=== PATIENT | female | born 1990 | race Caucasian/White ===

== ENCOUNTER 2019-04-10 10:23 | Emergency (ER) | payer BC ==
[2019-04-10] MEDS ORDERED: NS 0.9% 1000 ML** 2,000 ML IV ONE (10:44)
[2019-04-10] MEDS ORDERED: Acetaminophen TAB* 325 MG PO ONE (10:45)
[2019-04-10] MEDS ORDERED: DOXYcycline CAP(*) 100 MG PO ONE (10:45)
--- NOTE | 2019-04-10 10:51 | ED ---
Skin Complaint - HPI Summary HPI Summary: This pt is a 28 y/o female presenting to [facility] c/o tick bite to left lower abdomen since 2 days ago. Pt reports she woke up 2 days ago with a rash on her left lower abdomen. She then notes she had a fever of 102F later that night. She went to [facility] yesterday and was told it was a tick bite and was given Doxycycline and was also told to get blood work done. Pt never saw a tick. 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 Pt took the first dose of Doxycycline last night and throughout the night she notes she felt tingling and numbness on her right lower lip. She describes a Novacaine sensation on her lip. Pt took Benadryl and placed a hot compress without much relief. Currently reports persistent numbness on lip. Additionallly notes nausea, decreased appetite, intermittent fevers. Denies cough, abd pain, vomiting, neck pain, chest pain, SOB. Pt did not take Doxycycline today. LMP: March 22, 2019. - History of Current Complaint Chief Complaint: EDFever Time Seen by Provider: 04/10/19 10:34 Stated Complaint: FACIAL NUMBNESS PER PT Hx Obtained From: Patient Onset/Duration: Started Days Ago - 2, Still Present Skin Exposure Onset/Duration: Days Ago - 2 Timing: Lasting Days - 2 Current Severity: None Pain Intensity: 0 Pain Scale Used: 0-10 Numeric Skin Location: Abdomen - left lower Character: Swelling, Redness Aggravating Symptom(s): Nothing Alleviating Symptom(s): Nothing Associated Signs & Symptoms: Nausea, Numbness - on lip, Fever Related History: Insect Bite/Sting - Tick bite - Allergy/Home Medications Allergies/Adverse Reactions: Allergies Allergy/AdvReac Type Severity Reaction Status Date / Time No Known Allergies Allergy Verified 04/10/19 10:46 Home Medications: Home Medications Cetirizine* [ZyrTEC 10 MG TAB*] 10 mg PO DAILY 04/10/19 [History Confirmed 04/10] Cyanocobalamin TAB* [Vitamin B12 TAB*] 500 mcg PO DAILY 04/10/19 [History Confirmed 04/10/19] Venlafaxine EXT RELEASE CAP(NF [Effexor Xr CAP 225 MG (NF)] 225 mg PO DAILY [History Confirmed 04/10/19] PMH/Surg Hx/FS Hx/Imm Hx Endocrine/Hematology History: Denies: Hx Diabetes Cardiovascular History: Denies: Hx Hypertension - Family History Known Family History: Positive: Hypertension - mother Negative: Cardiac Disease, Diabetes - Social History Alcohol Use: Occasionally Substance Use Type: Reports: Marijuana Smoking Status (MU): Never Smoked Tobacco Review of Systems Constitutional: Other - POSITIVE: decreased appetite Positive: Fever. Negative: Chills Negative: Chest Pain Negative: Shortness Of Breath, Cough Positive: Nausea. Negative: Abdominal Pain, Vomiting Skin: Other - POS: Positive: Paresthesia - on lip, Numbness - on lip All Other Systems Reviewed And Are Negative: Yes Physical Exam - Summary Physical Exam Summary: VITAL SIGNS: Reviewed. GENERAL: Patient is a well-developed and nourished female who is lying comfortable in the stretcher. Patient is not in any acute respiratory distress. HEAD AND FACE: No signs of trauma. No ecchymosis, hematomas or skull depressions. No sinus tenderness. EYES: PERRLA, EOMI x 2, No injected conjunctiva, no nystagmus. EARS: Hearing grossly intact. Ear canals and tympanic membranes are within normal limits. MOUTH: Oropharynx within normal limits. NECK: Supple, trachea is midline, no adenopathy, no JVD, no carotid bruit, no c- spine tenderness, neck with full ROM. CHEST: Symmetric, no tenderness at palpation LUNGS: Clear to auscultation bilaterally. No wheezing or crackles. CVS: Tachycardic rate and regular rhythm, S1 and S2 present, no murmurs or gallops appreciated. ABDOMEN: Soft, non-tender. No signs of distention. No rebound, no guarding, and no masses palpated. Bowel sounds are normal. EXTREMITIES: FROM in all major joints, no edema, no cyanosis or clubbing. NEURO: Alert and oriented x 3. No acute neurological deficits. Speech is normal and follows commands. SKIN: Dry and warm. Bullseye rash to left lower abdomen. Triage Information Reviewed: Yes Vital Signs On Initial Exam: Initial Vitals Temp 99.3 F 04/10/19 10:36 Vital Signs Reviewed: Yes Diagnostics - Vital Signs Vital Signs Temp 04/10/19 10:36 99.3 F Heart rate: 125 O2 saturation: 98 Blood Pressure: 129/78 - Laboratory Result Diagrams: 04/10/19 10:59 04/10/19 10:59 Lab Statement: Any lab studies that have been ordered have been reviewed, and results considered in the medical decision making process. - Radiology Chest XR Radiology Interpretation Completed By: Radiologist Summary of Radiographic Findings: IMPRESSION: No active cardiopulmonary disease. Dr. Pan has reviewed this report. Re-Evaluation - Re-Evaluation First Eval Re-Evaluation Time: 12:43 Comment: Reviewed lab results with pt. She will be discharged home. Course/Dx - Course Assessment/Plan: Pt is a 28 y/o female who presents to the ED c/o tick bite to left lower abdomen since 2 days ago. Pt reports she woke up 2 days ago with a rash on her left lower abdomen. She then notes she had a fever of 102F later that night. She went to [facility] yesterday and was told it was a tick bite and was given Doxycycline and was also told to get blood work done. Pt never saw a tick. 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 Pt took the first dose of Doxycycline last night and throughout the night she notes she felt tingling and numbness on her right lower lip. She describes a Novocaine sensation on her lip. Pt took Benadryl and placed a hot compress without much relief. Currently reports persistent numbness on lip. Additionallly notes nausea , decreased appetite, intermittent fevers. Pt did not take Doxycycline today. Test results without any significant abnormalities except for ESR of 63, fibrinogen of 478.4, potassium of 3.4, glucose of 132. In the ED course the pt was given IV fluids, Tylenol, potassium chloride, Doxycycline. After medications pt's heart rate has improved to 92 bpm and her temperature has decreased to 98.2F. Pt will be discharged home with follow up from her PCP in 2 -3 days. She was given instruction to return to the ED for any worsening or new symptoms. - Diagnoses Provider Diagnoses: Lyme disease Discharge - Sign-Out/Discharge Documenting (check all that apply): Patient Departure - Discharge home Patient Received Moderate/Deep Sedation with Procedure: No - Discharge Plan Condition: Stable Disposition: HOME Patient Education Materials: Lyme Disease (ED) Referrals: Barbara Benavides MD [Primary Care Provider] - Additional Instructions: FOLLOW UP WITH YOUR PRIMARY CARE PROVIDER IN 2-3 DAYS. RETURN TO THE ED FOR ANY NEW OR WORSENING SYMPTOMS. - Attestation Statements Document Initiated by Scribe: Yes Documenting Scribe: Kortney Hernandez Provider For Whom Scribe is Documenting (Include Credential): Remy Pan MD Scribe Attestation: Kortney Cantor, scribed for Remy Pan MD on 04/10/19 at 1328. Status of Scribe Document: Ready
[2019-04-10 11:13] LABS: ABS Lymphocytes 0.5 10^3/ul (1.0-4.8); ABS Monocytes 0.6 10^3/ul (0-0.8); ABS Neutrophils 6.8 10^3/ul (1.5-7.7); Eosinophil % 0.1 %; Hematocrit 37 % (35-47); Lymphocyte % 6.1 %; Mean Corpuscular HGB Conc 35 g/dL (31-36); Mean Corpuscular Hemoglobin 31 pg (27-31); Mean Corpuscular Volume 88 fL (80-97); Mean Platelet Volume 7.6 fL (7.4-10.4); Platelet Count 270 10^3/uL (150-450); Red Blood Count 4.24 10^6 /uL (3.70-4.87); Red Cell Distribution Width 13 % (10-15); White Blood Count 7.8 10^3/uL (3.5-10.8)
[2019-04-10 11:35] LABS: Albumin 4.2 g/dL (3.2-5.2); Albumin/Globulin Ratio 1.2 (1-3); BUN/Creatinine Ratio 10.3 (8-20); Calcium 9.4 mg/dL (8.6-10.3); EGFR African American 125.6 (>60); EGFR Non-African American 103.8 (>60); Globulin 3.5 g/dL (2-4); Potassium 3.4 mmol/L (3.5-5.0); Total Bilirubin 0.5 mg/dL (0.2-1.0); Total Protein 7.7 g/dL (6.4-8.9)
--- OUTSIDE RECORDS SUMMARY | 2019-04-10 11:52 | XMS REPORT | Continuity of Care Document ---
:1990 External Reference #:[id number] Author Name Odette Yap N.P.,C.N.M. Address [address] [place] [id number] Care Team Providers Name Role Phone Barbara Benavides M.D. Primary Care Physician Unavailable Payers Date Identification Numbers Payment Provider Subscriber Effective: Policy Number: [id number] [place] Sinai Cabrera 2017 [employer] PayID: [id number] [id number] [place] [address] Problems Active Problems Provider Date Anxiety state Odette Yap N.P.,C.N.M. Onset: 12/31/2011 Family History Date Family Member(s) Observation Comments General Breast Cancer Pat Aunt at 35 yo (survivor) MGr Aunt in her 40's (survivor) General Prostate Cancer MGF in his 70's and from General Skin Cancer Mat Aunt in her 30's (survivor) General Colon Cancer PGF in his 30's at 56 from mets General Melanoma Mat Aunt General Lymphoma Pat Cousin at 31 yo Father Hypertension Onset: (age 56 Years) Father Melanoma Mother Hypertension Social History Type Date Description Comments Sex Unknown Education Highest level completed, Bachelor's Degree Marital Status Single Occupation Teacher [place] Abuse No history of abuse ETOH Use Occasionally consumes alcohol Tobacco Use Start: Unknown Patient has never smoked Recreational Drug Use Sporadically uses Marijuana Tattoo/Piercing Tattoo R foot Currently Active Patient is currently sexually active Contraceptive Methods Current methods include copper T IUD Age 1st [place] 18 Years Old # Partners in a Lifetime 6 STD's No STD History Allergies, Adverse Reactions, Alerts Description No Known Drug Allergies Medications Active Medications SIG Qnty Indications Ordering Date Provider Solosec take entire 1units Odette Yap, 03/26/2019 2gm Packet contents of N.P.,C.N.M. packet onto applesauce, yogurt or pudding, stir and mix consume within 30 minutes do not chew granul Paragard Intrauterine inserted in [facility] Marimar 02/15/2017 [facility] Lot# [id number] Tanya [id number] Exp: T380a IUD 04/2023 Venlafaxine HCL Unknown 25mg Tablets Zyrtec Allergy Unknown 10mg Capsules History Medications Flagyl 1 by mouth twice 14tabs Odette Yap, 03/27/2018 - 500mg Tablets a day x 7 days N.P.,C.N.M. 03/25/2019 Apri take as directed 28tabs Odette Dyeran, 12/13/2016 - 0.15-30mg-mcg Tablets N.P.,C.N.M. 12/13/2016 Paragard Intrauterine inserted in [facility] Odette Dyeran, 12/13/2016 - [facility] 12/13/16 N.P.,C.N.M. 04/21/2017 T380a [id number] Exp: T380a IUD 01/2023 Flagyl 1 by mouth twice 14tabs Odette Dyeran, 02/09/2016 - 500mg Tablets a day x 7 days N.P.,C.N.M. 11/15/2016 Apri take as directed 28tabs Marimar Kristen, 05/17/2014 - 0.15-30mg-mcg Tablets M.D. 02/06/2016 Apri take as directed 1pack Odette Dyeran, 03/16/2012 - 0.15-30mg-mcg Tablets N.P.,C.N.M. 05/01/2013 Flagyl 1 po tid x 5 15tabs Semaj Avila, 06/23/2011 - 250mg Tablets days M.D. 12/31/2011 Flagyl 1 po bid x 7 14tabs Odette Dyeran, 11/09/2010 - 500mg Tablets days N.P.,C.N.M. 06/22/2011 Ovcon-35 1 po qd 1pk Odette Dyeran, 11/06/2010 - 0.4-35mg-mcg N.P.,C.N.M. 06/22/2011 Tablets Femcon Fe Chew And Swallow 3pks Odette Yap, 09/04/2008 - Chew One Tablet By N.P.,C.N.M. 11/06/2010 Mouth Every Day Lexapro take 1 tab po qd 30tabs Unknown - 10mg Tablets as directed 06/22/2011 Balziva 1 po qd 1tabs Odette Yap, - 0.4-35mg-mcg N.P.,C.N.M. 03/16/2012 Tablets Propranolol HCL Unknown - 10mg 02/06/2016 Tablets Amoxicillin/Clavulanate Unknown - Potassium 02/06/2016 875-125mg Tablets Benzonatate Unknown - 100mg Capsules 02/06/2016 Clarithromycin Unknown - 500mg 02/06/2016 Tablets Propranolol HCL Unknown - 10mg 03/19/2018 Tablets Vitamin D Unknown - 1000Unit Tablets 03/19/2018 Amoxicillin Take One Capsule Unknown - 500mg Capsules By Mouth Three 03/19/2018 Times A Day Vital Signs Date Vital Result Comment 03/26/2019 1:22pm BP Systolic 142 mmHg BP Diastolic 84 mmHg Height 63 inches 5'3" Weight 176.00 lb BMI (Body Mass Index) 31.2 kg/m2 03/20/2018 1:16pm BP Systolic 128 mmHg BP Diastolic 84 mmHg Height 63 inches 5'3" Weight 172.00 lb BMI (Body Mass Index) 30.5 kg/m2 04/22/2017 1:30pm BP Systolic 126 mmHg BP Diastolic 84 mmHg Height 63 inches 5'3" Weight 171.12 lb BMI (Body Mass Index) 30.3 kg/m2 03/21/2017 3:58pm BP Systolic 124 mmHg BP Diastolic 84 mmHg Height 63 inches 5'3" Weight 171.12 lb BMI (Body Mass Index) 30.3 kg/m2 02/14/2017 2:07pm BP Systolic 138 mmHg BP Diastolic 80 mmHg Height 63 inches 5'3" Weight 170.50 lb BMI (Body Mass Index) 30.2 kg/m2 12/13/2016 3:48pm BP Systolic 128 mmHg BP Diastolic 84 mmHg Height 63 inches 5'3" Weight 174.00 lb BMI (Body Mass Index) 30.8 kg/m2 11/15/2016 2:59pm BP Systolic 122 mmHg BP Diastolic 80 mmHg Height 63 inches 5'3" Weight 173.38 lb BMI (Body Mass Index) 30.7 kg/m2 02/06/2016 3:07pm BP Systolic 112 mmHg BP Diastolic 74 mmHg Height 63 inches 5'3" Weight 165.12 lb BMI (Body Mass Index) 29.2 kg/m2 01/17/2015 9:44am BP Systolic 110 mmHg BP Diastolic 70 mmHg Height 63 inches 5'3" Weight 159.00 lb BMI (Body Mass Index) 28.2 kg/m2 05/28/2014 9:16am BP Systolic 118 mmHg BP Diastolic 78 mmHg Height 63 inches 5'3" Weight 149.25 lb BMI (Body Mass Index) 26.4 kg/m2 01/10/2014 8:57am BP Systolic 110 mmHg BP Diastolic 78 mmHg Height 63 inches 5'3" Weight 142.25 lb BMI (Body Mass Index) 25.2 kg/m2 10/18/2013 1:21pm BP Systolic 122 mmHg BP Diastolic 74 mmHg Height 63 inches 5'3" Weight 144.25 lb BMI (Body Mass Index) 25.5 kg/m2 07/18/2013 11:18am BP Systolic 120 mmHg BP Diastolic 68 mmHg Height 63 inches 5'3" Weight 141.38 lb BMI (Body Mass Index) 25.0 kg/m2 06/26/2013 11:41am BP Systolic 126 mmHg BP Diastolic 86 mmHg Height 63 inches 5'3" Weight 139.50 lb BMI (Body Mass Index) 24.7 kg/m2 05/01/2013 11:33am BP Systolic 114 mmHg BP Diastolic 78 mmHg Height 63 inches 5'3" Weight 137.50 lb BMI (Body Mass Index) 24.4 kg/m2 04/02/2013 1:07pm BP Systolic Recheck 118 mmHg BP Diastolic Recheck 78 mmHg Height 63 inches 5'3" Weight 139.38 lb BMI (Body Mass Index) 24.7 kg/m2 12/31/2011 9:29am BP Systolic 120 mmHg BP Diastolic 80 mmHg Height 63 inches 5'3" Weight 128.00 lb BMI (Body Mass Index) 22.7 kg/m2 06/22/2011 8:38am BP Systolic 114 mmHg BP Diastolic 60 mmHg Height 63 inches 5'3" Weight 129.00 lb BMI (Body Mass Index) 22.8 kg/m2 11/06/2010 1:42pm BP Systolic 121 mmHg BP Diastolic 81 mmHg Height 63 inches 5'3" Weight 133.00 lb BMI (Body Mass Index) 23.6 kg/m2 Results Test Date Facility Test Result H/L Range Note Laboratory test 03/20/2018 [facility] Vag/Cerv Culture SPECIMEN [address] [place] [address] DESCRI> [place] [address] [phone] CT/GC Amplified 03/20/2018 [facility] C. Trachomatis NEGATIVE (Neg) [address] [place] [address] [place] [address] [phone] N. Gonorrhoeae NEGATIVE (Neg) 3 Laboratory test 03/20/2018 [facility] Culture -azzyw-ww-yhjse finding [address] [place] [address] [place] [address] [phone] Laboratory test 02/14/2017 [facility] Liquid-Based Normal N 4 finding Pap w/reflex HPV if ASCUS+CT/NG NG & CT By PCR 02/14/2017 [facility] CTNG Normal N 5 Liquid-Based Pap w/reflex HPV if ASCUS+CT/NG SEE IMAGE Laboratory test 02/19/2016 [facility] Insulin @ 10.4 mU/L (1.9-23.0) [address] [place] [address] [place] [address] [phone] Cortisol @ 11.1 g/dL 7 Homocysteine @ 7.3 umol/L (5.0-18.0) Progesterone @ 6.89 ng/mL 8 Estradiol @ 107 pg/mL 9 Testosterone 02/19/2016 [facility] Testosterone, 27.1 (9.0-55.0) 10 LC,Free And [address] [place] [address] LCMS ng/[place] [address] [phone] Testo, Free 2.8 pg/mL (0.8-7.4) 11 Sex Horm Bind Glob @ 51 nmol/L (18-136) 12 Laboratory test 02/19/2016 [facility] Dhea Sulfate @ 191 g/dL (63- 380) finding [address] [place] [address] [place] [address] [phone] Prolactin @ 12.3 ng/mL 13 Pap+GC/CT 02/06/2016 [facility] (DO Not Use) [facility] GC- CT- N 14 Laboratory test 02/06/2016 [facility] -yeast+bv-trich finding [address] [place] [address] [phone] Laboratory test 02/06/2016 [facility] Vag/Cerv Culture SPECIMEN [address] [place]CR[place]> [place] [address] [phone] Laboratory test 01/17/2015 [facility] [address] Pathology [facility] <[place] [address] Specimen NOTE> [phone] Laboratory test 05/28/2014 [facility] (DO Not Use) Cytology Pap See Note 17 finding GC / Chlamydia 05/28/2014 [facility] (DO Not Use) GC NEGATIVE 18 Chlamydia NEGATIVE Laboratory test 05/28/2014 [facility] [address] Pathology [facility]i <[place] [address] Specimen NOTE> [phone] Laboratory test 01/10/2014 [facility] -[id number]-[id number] finding [address] [place] [address] [phone] Laboratory test 01/10/2014 [facility] (DO Not Use) Cytology Pap See Note 20 finding Laboratory test 01/10/2014 [facility] Vag/Cerv SPECIMEN [address] Culture [place]CRI> [place] [address] [phone] Surgical Pathology Specimen [facility] <SEE NOTE> 22 Laboratory test 10/18/2013 [facility] [address] Pathology [facility] <[place] [address] Specimen NOTE> [phone] Laboratory test 10/18/2013 [facility] (DO Not Use) Cytology Pap See Note 24 finding Laboratory test 06/26/2013 [facility] [address] Pathology [facility] <[place] [address] Specimen NOTE> [phone] Laboratory test 05/01/2013 [facility] [address] Pathology [facility] <[place] [address] Specimen NOTE> [phone] Laboratory test 04/02/2013 [facility] Pap LABORATORY [address] [place] <[place] [address] NOTE> [phone] CT/GC Amplified 04/02/2013 [facility] C. Trachomatis NEGATIVE (Neg [address] [place] [address] ) [place] [address] [phone] N. Gonorrhoeae NEGATIVE (Neg) 29 CT/GC Amplified 12/31/2011 [facility] C. Trachomatis NEGATIVE (Neg) [address] [place] [address] [phone] N. Gonorrhoeae NEGATIVE (Neg) 31 Laboratory test 06/22/2011 [facility] -yeast+bv-trich finding [address] [facility] [place] [place] [address] [phone] CT/GC Amplified 06/22/2011 [facility] C. Trachomatis NEGATIVE (Neg [address] [place] [address] [phone] N. Gonorrhoeae NEGATIVE (Neg) 33 Laboratory test 06/22/2011 [facility] Vag/Cerv SPECIMEN [address] [place] [address] Culture DESCRIP <[place] [address] NOTE> [phone] STD screen (no 11/06/2010 [facility] Hepatitis B S NEGATIVE (Neg) hsv) shree [address] [place] [address] [place] [address] [phone] Hepatitis C AB @ NEGATIVE (Neg) 35 Treponema Igg/Igm @ NEGATIVE (Neg) HIV 1/2 AB 11/06/2010 [facility] HIV 1/2 AB @ NEGATIVE (Neg) [address] [place] [address] [phone] Ua And Culture 11/06/2010 [facility] Urine Culture SPECIMEN 37 (Lacny) [address] [place] [address] DESCRIP <[place] [address] NOTE> [phone] Urinalysis 11/06/2010 [facility] Color YELLOW [address] [place] [address] [phone] Appearance CLEAR Spec Grav Urine 1.022 (1.003-1.030) PH Urine 5.5 (5.0-7.5) Leuk Esterase NEGATIVE (Neg) Nitrite Urine NEGATIVE (Neg) Protein Urine NEGATIVE (Neg) Glucose Urine NEGATIVE (Neg) Ketone Urine NEGATIVE (Neg) Urobilinogen 0.2 mg/dL (0-1.0) Bilirubin Urine NEGATIVE (Neg) Blood/HGB Urine NEGATIVE (Neg) HSV1 Glycoprot 11/06/2010 [facility] HSV1 Glyco G 0.43 INDEX (0.00- 0.89) 38 G Igg [address] [facility] [place] [address] [phone] HSV2 Glycoprot 11/06/2010 [facility] HSV2 Glyco G 0.87 INDEX (0.00- 0.89) 39 G Igg [address] [facility] [place] [address] [phone] Laboratory 11/06/2010 [facility] Culture -yeast+bv-t test finding [address] [place] [address] [phone] CT/GC 11/06/2010 [facility] C. Trachomatis NEGATIVE (Neg) 40 Amplified [address] [facility] [place] [address] [phone] N. Gonorrhoeae NEGATIVE (Neg) 41 CT/GC Amplified 08/01/2009 [facility] C. Trachomatis NEGATIVE (Neg) 42 [address] [facility] [place] [address] [phone] N. Gonorrhoeae NEGATIVE (Neg) 43 Laboratory test 08/01/2009 [facility] Pap LABORATORY [address] [place] <[place] [address] NOTE> [phone] CT/GC Amplified 05/23/2008 [facility] C. Trachomatis NEGATIVE (Neg) 45 [address] [place] [address] [phone] N. Gonorrhoeae NEGATIVE (Neg) 46 Laboratory test 05/23/2008 [facility] Pap LABORATORY ALLIA 47 finding [address] [facility] <SEE NOTE> [place] [address] [phone] 1 SPECIMEN DESCRIPTION VAGINAL SPECIMEN GROUP B STREP CULT. NEGATIVE: BETA HEMOLYTIC STREPTOCOCCI GROUP B B Y PCR CULTURE RESULTS MANY GARDNERELLA VAGINALIS NO NEISSERIA GONORRHOEAE ISOLATED REPORT STATUS FINAL 03/23/2018 2 SOURCE - CERVICAL BY AMPLIFIED DNA PROBE PERFORMED BY LABORATORY [address] [address] 3 SOURCE - CERVICAL BY AMPLIFIED DNA PROBE PERFORMED BY [address] [address] 4 SPECIMEN PART A. Cervical, Endocervical, ThinPrep Pap (Electrical Prospecting Observer) CYTOLOGY HX Date of Last Menstrual Period: n FINAL DIAGNOSIS INTERPRETATION: Negative for Intraepithelial Lesion or Malignancy. SPECIMEN ADEQUACY:Satisfactory for evaluation. Endocervical/transformation zone component present. 5 Chlamydia / Neisseria CHLAMYDIA TRACHOMATIS: Not detected NEISSERIA GONORRHOEAE: Not detected Note: A negative result does not rule out infection. While Nucleic Acid Amplification is very sensitive, inadequate specimen collection or low levels of organism may lead to negative results. Testing performed by the FDA-approved APTIMA COMBO 2 method. 6 ADULT REFERENCE RANGE 7 CORTISOL REFERENCE RANGE: 7-9AM 4.3 - 22.4 MCG/DL 4-6PM 3.1 - 16.7 MCG/DL LATE AFTERNOON LEVELS FALL TO APPROX. 1/2 AM VALUE. RESULTS REVIEWED 8 PROGESTERONE REFERENCE RANGE: MALE <1.97 NG/ML FEMALE MENSTRUATING FOLLICULAR 0.21 - 1.70 NG/ML LUTEAL 2.25 - 24.20 NG/ML MID-LUTEAL 8.76 - 21.60 NG/ML POSTMENOPAUSAL < 0.90 NG/ML 1ST TRIMESTER 11.40 - 41.00 NG/ML 2ND TRIMESTER 13.80 - 156.00 NG/ML 3RD TRIMESTER >51.40 NG/ML New method and reference ranges in use 11/06/2015. 9 ESTRADIOL REFERENCE RANGE: MENSTRUATING FEMALES FOLLICULAR PHASE 21-165 PG/ML MIDCYCLE 50-367 PG/ML LUTEAL PHASE 40-259 PG/ML POSTMENOPAUSAL <40 PG/ML NEW METHOD AND REFERENCE RANGE IN USE 10/23/13. RESULTS FROM THIS METHOD ARE SLIGHTLY LOWER THAN RESULTS FROM PREVIOUS METHOD. 10 This test is suggested for women, children and hypogonadal males due to improved sensitivity when testing by LC-MS/MS. The assay was developed and its performance characteristics determined by [employer] [facility], and it has been approved by [facility]. The US Food and Drug Administration has not approved or cleared this test. FDA clearance or approval, however, is not currently required for clinical use. The results are not intended to be used as the sole means for clinical diagnosis or patient management decisions. Total testosterone values may not reflect optimal concentrations in all individuals. Free or bioavailable testosterone measurement may provide supportive information. Access complete set of age- and/or gender- specific reference intervals for this test in the Laboratory [employer] ([employer]) PERFORMED AT [address] [place] [address] 11 THE CONCENTRATION OF FREE TESTOSTERONE IS DERIVED FROM A MATHEMATICAL EXPRESSION BASED ON THE CONSTANT FOR THE BINDING OF TESTOSTERONE TO SHBG. 12 ADULT REFERENCE RANGE 13 Prolactin Reference Range: Males 2.5 - 17.4 ng/mL Females Non- 2.2 - 30.3 ng/mL 8.1 - 347.6 ng/mL Postmenopausal 0.7 - 31.5 ng/mL 14 Interpretation: NEGATIVE FOR INTRAEPITHELIAL LESION OR MALIGNANCY. Specimen Adequacy: SATISFACTORY FOR EVALUATION. Additional Findings: ENDOCERVICAL/TRANSFORMATION ZONE PRESENT. This liquid-based ThinPrep Pap Test was screened with the use of the ThinPrep Imaging System and was reported using Trona System descriptive nomenclature. Cytology Laboratory [address] [facility], [address] [place] [address] CYTOLOGY REPORT Name: Lynn Cabrera : 1990 (Age: 25) Sex: F Location: [facility]. Rec. # [id number] Date Collected: 02/06/2016 Billing #: [id number] Date Received: 02/09/2016 Requisition # [id number] Physician(s): ODETTE YAP NP CNM Source of Specimen: ENDOCERVICAL/ECTOCERVICAL THIN PREP Clinical Information: Date of Last Menstrual Period: None Provided kfs Electronic Signature DELORIS Tse (ASCP) Reported: 02/12/2016 [facility] Technical Laboratory [facility] Neisseria gonorrhoeae Date Ordered: 02/10/2016 Status: Signed Out Date Reported: 02/10/2016 Neisseria gonorrhoeae NEGATIVE Electronic Signature Joceline Avila [facility] Chlamydia trachomatis Date Ordered: 02/10/2016 Status: Signed Out Date Reported: 02/10/2016 Chlamydia trachomatis NEGATIVE Electronic Signature Joceline Avila [facility] Dx Code(s): Z01.411 Z11.3 15 SPECIMEN DESCRIPTION VAGINAL SPECIMEN GROUP B STREP CULT. NEGATIVE: BETA HEMOLYTIC STREPTOCOCCI GROUP B B Y PCR CULTURE RESULTS NORMAL VAGINAL ERICH NO NEISSERIA GONORRHOEAE ISOLATED REPORT STATUS FINAL 02/08/[address] [place] [address] Surgical Pathology Report Specimen(s) Received: A: ECC Clinical Diagnosis and History: {Not Provided} Gross Description: Specimen received in formalin labeled "ECC" is a hemorrhagic cytobrush from which a minute aggregate of mucoid hemorrhagic material is scraped measuring 0.3 x 0.3 x 0.1 cm. The specimen is entirely submitted. (1 block) jgl mls/jrf Comments: The prior history of AIYANA III/high grade AUGUSTIN is noted ([id number]). Recommend follow-up Pap and HPV testing in 12 months, or further follow-up as clinically indicated. Diagnosis: ENDOCERVICAL CURETTINGS: Mucus containing rare atypical squamous cells of undetermined significance. There is very little T-zone epithelium present for evaluation. Multiple levels examined. See comment. Processed at [facility], Histopathology, [address] [place] [address], [phone]. Reported at [facility] at [facility], [address] [place] [address], [phone]. Reported: 01/20/2015 Electronically Signed Out By Red Clarke M.D. [facility] This report may include one or more immunohistochemical or in-situ hybridization results. Testing has been developed and the performance characteristics were determined by [facility] as required by CLIA '88 regulations. The tests may not have been approved for a given specific use by the US Food and Drug Administration, but the FDA has determined that such approval is not necessary for clinical use. ICD9 Code: 795. 17 Cytology Laboratory [address] [place] [address], [address] [place] [address] CYTOLOGY REPORT Name: Lynn Cabrera : 1990 (Age: 24) Sex: F Location: [facility]. Rec. # [id number] Date Collected: 05/28/2014 Billing #: [id number] Date Received: 05/28/2014 Requisition # [id number] Physician(s): MARIMAR PETERSON MD Source of Specimen: ENDOCERVICAL/ECTOCERVICAL THIN PREP Clinical Information: Date of Last Menstrual Period: 05/09/14 Interpretation: NEGATIVE FOR INTRAEPITHELIAL LESION OR MALIGNANCY. Specimen Adequacy: SATISFACTORY FOR EVALUATION. Additional Findings: ENDOCERVICAL/TRANSFORMATION ZONE ABSENT. md Electronic Signature Connor Schultz MD Reported: 05/30/2014 Also seen by: DELORIS King (ASCP) DELORIS Pendleton (ASCP) [facility] ICD-9 Code(s) 795.04 18 Special Testing Laboratory [address] [facility], [address] [place] [address] GC / CHLAMYDIA REPORT Name: Lynn Cabrera : 1990 (Age: 24) Sex: F Location: [facility]. Rec. # [id number] Date Collected: 2013 Billing #: [id number] Date Received: 05/28/2014 Requisition # [id number] Physician(s): MARIMAR PETERSON MD Source of Specimen: ThinPrep, APTIMA Results: Neisseria gonorrhoeae NEGATIVE Chlamydia trachomatis NEGATIVE Comment: This analysis was performed using second generation nucleic acid amplification testing (NAAT). Reported: 05/29/2014 Electronic Signature deloris Serra [facility] ICD-9 Codes: V73.[address] [place] [address] Surgical Pathology Report Specimen(s) Received: A: ECC Clinical Diagnosis and History: {Not Provided} Gross Description: Specimen received in formalin labeled "ECC" is predominantly a 0.8 x 0.8 x 0.2 cm aggregate of blood tinged mucus intermixed with red chatterjee soft tissue fragments and clotted blood. The tissue is received on a cervical brush, is subsequently scraped off and submitted entirely in one cassette, filtered through a biopsy bag and inked green. edenilson dunbar/jrf Diagnosis: ENDOCERVICAL CURETTAGE: Mucus and fragments of T-zone mucosa (endocervical and squamous) showing acute inflammation and reactive epithelial changes. There is no evidence of AUGUSTIN/dysplasia in this specimen. Multiple levels examined. Processed at [facility], Histopathology, [address] [place] [address], [id number]. Reported at [facility] at [facility], [address] [place] [address], [phone]. Reported: 05/29/2014 Electronically Signed Out By Red Clarke M.D. edenilson [facility] This report may include one or more immunohistochemical or in-situ hybridization results. Testing has been developed and the performance characteristics were determined by [facility] as required by CLIA '88 regulations. The tests may not have been approved for a given specific use by the US Food and Drug Administration, but the FDA has determined that such approval is not necessary for clinical use. ICD9 Code: 616. 20 Cytology Laboratory [address] [place] [address], [address] [place] [address] CYTOLOGY REPORT Name: Lynn Cabrera : 1990 (Age: 23) Sex: F Location: [facility]. Rec. # [id number] Date Collected: 01/10/2014 Billing #: [id number] Date Received: 01/10/2014 Requisition # [id number] Physician(s): MARIMAR PETERSON MD Source of Specimen: ENDOCERVICAL/ECTOCERVICAL THIN PREP Clinical Information: Date of Last Menstrual Period: 12/21/13 Interpretation: NEGATIVE FOR INTRAEPITHELIAL LESION OR MALIGNANCY. Specimen Adequacy: SATISFACTORY FOR EVALUATION. Additional Findings: ENDOCERVICAL/TRANSFORMATION ZONE ABSENT. lr Electronic Signature Connor Schultz MD Reported: 01/14/2014 Also seen by: Shayy Pichardo CT ( ASC) DELORIS Dukes (ASCP) [facility] ICD-9 Code(s) 795.04 626.7 21 SPECIMEN DESCRIPTION CERVICAL GROUP B STREP CULT. NEGATIVE: BETA HEMOLYTIC STREPTOCOCCI GROUP B B Y PCR CULTURE RESULTS NORMAL VAGINAL ERICH NO NEISSERIA GONORRHOEAE ISOLATED REPORT STATUS FINAL 01/12/2014 [address] [place] [address] Surgical Pathology Report Specimen(s) Received: A: Endocervical curettings Clinical Diagnosis and History: {Not Provided} Gross Description: Specimen received in formalin labeled "ECC" is a 1.0 x 0.7 x 0.1 cm aggregate of blood tinged mucus intermixed with red chatterjee soft tissue fragments and clotted blood. The tissue is received on a cervical brush, is subsequently scraped off and submitted entirely filtered through a biopsy bag. paw bettina/sandor Diagnosis: ENDOCERVIX, CURETTAGE: Fragments of benign endocervical and focal squamous mucosa. A p16 immunostain is negative for high grade dysplasia. Multiple levels examined. Processed at [facility], Histopathology, [address] [place] [address], [phone]. Reported at [facility], [address] [place] [address], [phone]. Reported: 01/11/2014 Electronically Signed Out By Iftikhar Eckert MD edenilson [facility] This report may include one or more immunohistochemical or in-situ hybridization results. Testing has been developed and the performance characteristics were determined by [facility] as required by CLIA '88 regulations. The tests may not have been approved for a given specific use by the US Food and Drug Administration, but the FDA has determined that such approval is not necessary for clinical use. ICD9 Code: 626. 23 [place] [address] Surgical Pathology Report Specimen(s) Received: A: Endocervical curettings Clinical Diagnosis and History: {Not Provided} Gross Description: Specimen received in formalin labeled "ECC" is predominantly a 1.0 x 0.7 x 0.2 cm aggregate of blood tinged mucus intermixed with red chatterjee soft tissue fragments and clotted blood. Filtered through a biopsy bag and totally submitted in one cassette. bulmarog dme/mwg Diagnosis: ENDOCERVIX, CURETTAGE: Fragments of benign endocervical mucosa along with a minute fragment of atypical squamous epithelium suspicious for dysplasia (mild to moderate). Processed at [facility], Histopathology, [address] [place] [address], [phone]. Reported at [facility] at [facility], [address] [place] [address], [phone]. Reported: 10/19/2013 Electronically Signed Out By Iftikhar Eckert MD [facility] This report may include one or more immunohistochemical or in-situ hybridization results. Testing has been developed and the performance characteristics were determined by [facility] as required by CLIA '88 regulations. The tests may not have been approved for a given specific use by the US Food and Drug Administration, but the FDA has determined that such approval is not necessary for clinical use. ICD9 Code: 795.0 24 [facility] [address] [place] [address], [address] [place] [address] CYTOLOGY REPORT Name: Lynn Cabrera : 1990 (Age: 23) Sex: F Location: [facility] Med. Rec. # [id number] Date Collected: 10/18/2013 Billing #: [id number] Date Received: 10/18/2013 Requisition # [id number] Physician(s): MARIMAR PETERSON MD Source of Specimen: ENDOCERVICAL/ECTOCERVICAL THIN PREP Clinical Information: Date of Last Menstrual Period: None Provided Specimen Adequacy: SATISFACTORY FOR EVALUATION. ADEQUATE ENDOCERVICAL/TRANSFORMATION ZONE. General Categorization: NEGATIVE FOR INTRAEPITHELIAL LESION OR MALIGNANCY. lr Electronic Signature Iftikhar Pate MD Reported: 10/22/2013 Also seen by: Shellie Encinas, CT (ASCP) Annmarie Bianchi, CT (ASCP) [facility] ICD-9 Code(s) 795.[address] [place] [address] Surgical Pathology Report Specimen(s) Received: A: Cervical cone B: Endocervical curettings Clinical Diagnosis and History: {Not Provided} Gross Description: Specimen A received in formalin labeled "cervical cone" are three pieces of chatterjee tissue partially covered by white chatterjee ectocervical surfaces. The pieces measure 1.0 x 1.0 x 0.3 cm, 1.7 x 1.0 x 0.2 cm, and 2.2 x 0.9 x 0.5 cm. No orientation is identified. Endocervical junctions are not apparent. The specimen is sectioned and entirely submitted as follows: A1 - smallest fragment, A2-3 - midsized fragment, A4-6 - largest fragment. Specimen B received in formalin labeled "ECC" is a 1.0 x 0.8 x 0.2 cm aggregate of blood tinged mucus intermixed with red chatterjee soft tissue fragments and clotted blood. The tissue is received on a cervical brush, is subsequently scraped off and submitted entirely filtered through a biopsy bag. edenilson dunbar/sandor Diagnosis: A) CERVIX, CONE EXCISION: HSIL (AIYANA 2 and AIYANA 3, moderate and severe dysplasia). Moderate to severe dysplasia focally extends to the endocervical margin and mild to moderate dysplasia focally extends to the ectocervical margin. Multiple levels examined. B) ENDOCERVIX, CURETTAGE: Scant fragments of benign endocervical mucosa. Processed at [facility], Histopathology, [address] [place] [address], [phone]. Reported at [facility] at [facility], [address] [place] [address], [phone]. Reported: 06/29/2013 Electronically Signed Out By Iftikhar Eckert MD edenilson [facility] This report may include one or more immunohistochemical or in-situ hybridization results. Testing has been developed and the performance characteristics were determined by [facility] as required by CLIA '88 regulations. The tests may not have been approved for a given specific use by the US Food and Drug Administration, but the FDA has determined that such approval is not necessary for clinical use. ICD9 Code: 622.[address] [place] [address] Surgical Pathology Report Specimen(s) Received: A: Endocervical curettings B: 6:00 cervical biopsy C: 12:00 cervical biopsy Clinical Diagnosis and History: {Not Provided} Gross Description: Specimen A received in formalin labeled "ECC" is a 0.6 x 0.5 x 0.1 cm aggregate of blood tinged mucus intermixed with scant red chatterjee soft tissue fragments and clotted blood. The tissue is received on a cervical brush, is subsequently scraped off and submitted entirely filtered through a biopsy bag. Specimen B received in formalin labeled "6 o'clock" are three irregular, white and red soft tissue fragments ranging from pinpoint to 0.3 cm in greatest dimension. Inked green and totally submitted in one cassette. Specimen C received in formalin labeled "12 o'clock" is a 0.4 x 0.3 x 0.1 cm irregular, white soft tissue fragment. Inked green, bisected and totally submitted in one cassette. bulmarog dme/mwg Diagnosis: A) ENDOCERVIX, CURETTAGE: Fragments of benign endocervical mucosa. A minute detached fragment of squamous mucosa with AIYANA 2 (moderate dysplasia) is also present. B) CERVIX, 6 O'CLOCK, BIOPSY: AIYANA 2 (HSIL, moderate dysplasia). Multiple levels examined. C) CERVIX, 12 O'CLOCK, BIOPSY: AIYANA 2 (HSIL, moderate dysplasia). The diagnosis is supported by positive immunostaining for p16. Multiple levels examined. Processed at [facility], Histopathology, [address] [place] [address], [phone]. Reported at [facility] at [facility], [address] [place] [address], [phone]. Reported: 05/02/2013 Electronically Signed Out By Iftikhar Eckert MD [facility] This report may include one or more immunohistochemical or in-situ hybridization results. Testing has been developed and the performance characteristics were determined by [facility] as required by CLIA '88 regulations. The tests may not have been approved for a given specific use by the US Food and Drug Administration, but the FDA has determined that such approval is not necessary for clinical use. ICD9 Code: 622.1 27 [facility] [address] [place] [address] GYNECOLOGIC CYTOLOGY REPORT Accession Number: [id number] Source of Specimen(s): A: [facility] Cervical / Endocervical Pap Smear - One Vial Clinical Diagnosis and History: Date of Last Menstrual Period: 03/11/13 Other Clinical Conditions: Last Pap Smear: 07/25 REFLEX TO DIGENE HPV ASSAY IF RESULTS OF THIS PAP ARE ASCUS Specimen Adequacy Satisfactory for evaluation Presence of endocervical/transformation zone component General Categorization Epithelial cell abnormality Interpretation HIGH GRADE SQUAMOUS INTRAEPITHELIAL LESION Moderate to severe dysplasia Recommendations Recommend colposcopic examination and biopsy, or further follow-up as clinically indicated. (ASCCP 2012 consensus guidelines for the management of women ages 21-24 years with HSIL). Prior Pap tests ([id number] and [id number]) are reviewed. Reported: 04/04/2013 Electronically Signed Out By Red Clarke M.D. Integrity Manager: Mora RON(ASCP) [facility] 28 SOURCE - CERVICAL BY AMPLIFIED DNA PROBE PERFORMED AT [address] [facility] [id number] 29 SOURCE - CERVICAL BY AMPLIFIED DNA PROBE PERFORMED AT [address] [facility] [address] 30 SOURCE - CERVICAL BY AMPLIFIED DNA PROBE PERFORMED AT [address] [facility] [id number] 31 SOURCE - CERVICAL BY AMPLIFIED DNA PROBE PERFORMED AT [address] [facility] [address] 32 SOURCE - CERVICAL BY AMPLIFIED DNA PROBE PERFORMED AT [address] [place] [phone] 33 SOURCE - CERVICAL BY AMPLIFIED DNA PROBE PERFORMED AT [address] [place] [address] 34 SPECIMEN DESCRIPTION VAGINAL SPECIMEN GROUP B STREP CULT. NEGATIVE FOR BETA HEMOLYTIC STREPTOCOCCI GROUP B BY PCR. CULTURE RESULTS NORMAL VAGINAL ERICH NO NEISSERIA GONORRHOEAE ISOLATED REPORT STATUS FINAL 06/24/2011 35 NOT INFECTED WITH HCV, UNLESS RECENT INFECTION IS SUSPECTED OR OTHER EVIDENCE EXISTS TO INDICATE HCV INFECTION. 36 THIS INFORMATION HAS BEEN DISCLOSED TO YOU FROM CONFIDENTIAL RECORDS WHICH ARE PROTECTED BY STATE LAW. STATE LAW PROHIBITS YOU FROM MAKING ANY FURTHER DISCLOSURE OF THIS INFORMATION WITHOUT THE SPECIFIC WRITTEN CONSENT OF THE PERSON TO WHOM IT PERTAINS, OR OTHERWISE PERMITTED BY LAW. 37 SPECIMEN DESCRIPTION MIDSTREAM URINE,CLEAN CATCH CULTURE RESULTS NO GROWTH REPORT STATUS FINAL 11/07/2010 38 INTERPRETATION OF RESULT < 0.90 NEGATIVE 0.90-1.10 EQUIVOCAL - repeat testing in 4-12 weeks may be helpful. > 1.10 POSITIVE PLEASE NOTE: Individuals infected with HSV may not exhibit detectable IgG antibody to glycoprotein G in the early stages of infection and 5-10% of infections may occur with glycoprotein G deficient virus. Detection of antibody presence in these cases may only be possible using a non-type specific screening test. NOTE: HSV serology cannot be interpreted in infants less than 60 days old. 39 INTERPRETATION OF RESULT < 0.90 NEGATIVE 0.90-1.10 EQUIVOCAL - repeat testing in 4-12 weeks may be helpful. > 1.10 POSITIVE PLEASE NOTE: Individuals infected with HSV may not exhibit detectable IgG antibody to glycoprotein G in the early stages of infection and 5-10% of infections may occur with glycoprotein G deficient virus. Detection of antibody presence in these cases may only be possible using a non-type specific screening test. NOTE: HSV serology cannot be interpreted in infants less than 60 days old. 40 SOURCE - CERVICAL BY AMPLIFIED DNA PROBE PERFORMED AT [address] [place] [address] 41 SOURCE - CERVICAL BY AMPLIFIED DNA PROBE PERFORMED AT [address] [place] [address] 42 SOURCE - CERVICAL BY AMPLIFIED DNA PROBE PERFORMED AT [address] [place] [address] 43 SOURCE - CERVICAL BY AMPLIFIED DNA PROBE PERFORMED AT [address] [place] [address] 44 [facility] [address] [place] [address] GYNECOLOGIC CYTOLOGY REPORT Accession Number: [id number] Source of Specimen(s): A: [facility] Cervical / Endocervical Pap Smear - One Vial Clinical Diagnosis and History: Date of Last Menstrual Period: None Provided Other Clinical Conditions: Last Smear Date: 05/24 Neg REFLEX TO DIGENE HPV ASSAY IF RESULTS OF THIS PAP ARE ASCUS Specimen Adequacy Satisfactory for evaluation Presence of endocervical/transformation zone component General Categorization Negative for intraepithelial lesion or malignancy Interpretation NEGATIVE FOR INTRAEPITHELIAL LESION OR MALIGNANCY Reported: 08/05/2009 Electronically Signed Out By Mora RON([facility]) [facility], P.CMaikol dyer ICD9 Code: 616.10 V72.31 45 SOURCE - CERVICAL BY AMPLIFIED DNA PROBE PERFORMED AT [address] [facility] [id number] 46 SOURCE - CERVICAL BY AMPLIFIED DNA PROBE PERFORMED AT [address] [facility] [id number] 47 LABORATORY [facility]. [address] [place] [address] GYNECOLOGIC CYTOLOGY REPORT Accession Number: [id number] Source of Specimen(s): A: [facility] Endocervical Pap Smear - One Vial Clinical Diagnosis and History: Date of Last Menstrual Period: 04/24/08 Other Clinical Conditions: REFLEX TO DIGENE HPV ASSAY IF RESULTS OF THIS PAP ARE ASCUS Specimen Adequacy Satisfactory for evaluation Presence of endocervical/transformation zone component General Categorization Negative for intraepithelial lesion or malignancy Interpretation NEGATIVE FOR INTRAEPITHELIAL LESION OR MALIGNANCY Acute inflammatory cells Reported: 05/27/2008 Electronically Signed Out By Yudelka RON([facility]) [facility], P.CMaikol aguilera ICD9 Code: V72.31 Procedures Date Code Description Status 03/21/2017 43164 IUD- Insert Intrauterine Device Completed 02/14/2017 76880 IUD Removal Completed 12/13/2016 00104 IUD- Insert Intrauterine Device Completed 01/17/2015 15292 Endocervical Curettage Not Done as Part Of A D&C Completed 05/28/2014 98399 Endocervical Curettage Not Done as Part Of A D&C Completed 01/10/2014 67796 Endocervical Curettage Not Done as Part Of A D&C Completed 10/18/2013 70019 Endocervical Curettage Not Done as Part Of A D&C Completed 06/26/2013 65899 Colposcopy Cervic W/Loop Electrode Biopsy(S) Of The Cervix Completed 05/01/2013 23015 Colposcopy Cervix W/BX & Endocervical Curettage Completed Encounters Type Date Location Provider Dx Diagnosis Office Visit 03/20/2018 Main Office Shi Sawant411 Encntr for nematology teacher exam 1:15p N.P.,C.N.M. (general) (routine) w abnormal findings N89.8 Other specified noninflammatory disorders of vagina Z30.431 Encounter for routine checking of intrauterine contracep dev Office Visit 04/22/2017 Main Office Odette Yap, Z30.431 Encounter for 1:30p N.P.,C.N.M. routine checking of intrauterine contracep dev Office Visit 03/21/2017 Main Office Odette Yap, Z30.430 Encounter for 3:15p N.P.,C.N.M. insertion of intrauterine contraceptive device Office Visit 02/14/2017 Main Office Odette Yap, Z01.419 Encntr for nematology teacher exam 2:00p N.P.,C.N.M. (general) (routine) w/o abn findings T83.32xA Displacement of intrauterine contraceptive device, init Z30.432 Encounter for removal of intrauterine contraceptive device Office Visit 12/13/2016 3:45p Main Office Odette Yap, Z30.014 Encounter for N.P.,C.N.M. initial prescription of uterin contracep dev Z30.430 Encounter for insertion of intrauterine contraceptive device Office Visit 11/15/2016 3:00p Main Office Odtete Yap Z30.014 Encounter for N.P.,C.N.M. initial prescription of uterin contracep dev Office Visit 02/06/2016 3:00p Main Office Odette Yap, Z01.411 Encntr for nematology teacher N.P.,C.N.M. exam (general) (routine) w abnormal findings N76.0 Acute vaginitis R53.83 Other fatigue Office Visit 01/17/2015 9:30a Main Office Odette Yap, 622.10 Dysplasia Of N.P.,C.N.M. Cervix NOS Office Visit 05/28/2014 9:00a Main Office Marimar Peterson, V72.31 Routine Manager Critical Care M.D. Screening Examination 622.10 Dysplasia Of Cervix NOS Office Visit 01/10/2014 8:30a Main Office Marimar Peterson, 622.10 Dysplasia Of M.D. Cervix NOS 626.4 Irregular Menstrual Cycle Office Visit 10/18/2013 1:30p Main Office Marimar Peterson, 622.10 Dysplasia Of M.D. Cervix NOS Office Visit 06/26/2013 11:30a Main Office Marimar Peterson, 622.10 Dysplasia Of M.D. 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 Screening Examination V73.98 Chlamydial Screening Unspec. Office Visit 12/31/2011 9:00a Main Office Odette Yap V72.31 Routine Manager Critical Care N.PMaikol,C.N.M. Screening Examination V73.98 Chlamydial Screening Unspec. Office 06/22/2011 Main Office Semaj Avila M.D. 616.10 Vaginitis & Visit 8:30a Vulvovaginitis Unspec Office 11/06/2010 Main Office Odette Yap V72.31 Routine Manager Critical Care Visit 1:20p N.P.,C.N.M. Screening Examination V15.85 History Personal Potentially Hazardous Body Fluids Exposure V74.9 Screening Examination Bacterial & Spirocheta Unspec V73.98 Chlamydial Screening Unspec. Office Visit 08/01/2009 2:15p Main Office Odette Yap V72.31 Routine Manager Critical Care N.PMaikol,C.N.M. Screening Examination Office Visit 01/21/2009 3:15p Main Office Marimar Peterson, 626.4 Irregular M.D. Menstrual Cycle Office Visit 05/23/2008 1:00p Main Office Marimar Peterson V72.31 Routine Manager Critical Care M.DMaikol Screening Examination Plan of Treatment Future Appointment(s):03/31/2020 1:15 pm - Odette Yap N.P.,C.N.M. at Main Wnzocc0403/26/2019 - Odette Yap N.P.,C.N.M.Z01.419 Encounter for gynecological examination (general) (routine) without abnormal findingsComments: Risks, benefits & alternatives fully discussed with patient regarding treatment plan/options -(Test scheduled/recommended and any medications prescribed). Patient fully understood and accepts. All questions answered to the best of my ability. Pap next year. Solosec coupon given and pt encouraged to take Florajen for her recurrent BV.Follow up:00iyJ63.431 Encounter for routine checking of intrauterine contraceptive deviceComments:strings appropriate mrnleuH13.3 Family history of malignant neoplasm of breastComments: Patient meets 2015 NCCN criteria for heritable cancer syndromes. Specifically patient has [include alist of criteria to choose.] We are basing this assessment on the family history patient is reporting to us. Affected relative(s ) has not been tested in this patient's family because: they are deceasedor they refused testing are unable to be reached have been tested and results are attached. We discussed and offered generic testing and patient accepted. The hereditary cancer panel will screen for 25genes, all of which impact the risk for one or more than eight different answers; breast, colon, prostate, skin, ovary, endometrial, stomach, and pancreas. As outlined by ACOG the following discussion points were reviewed with the patient during the course of todays appointment and the patient stated an understanding of the followin. Possible outcomes of the testing - specifically addressing the issue of positive , negative, and variance of unknown significance. In the case of an unknown significant variance, cancer risks are not yet fully defined.2. In the absence of a known familial mutation, when an unaffected patient is tested, interpretation of the results may be limited. A negative or unknown result does not eliminate the patients familial risk for cancer. Management based on familial risk would be discussed during result consult.3. Patient will consider surveillance, risk-reducing medications and risk-reducing surgery if a clinically actionable mutation is detected; referral to outsidespecialist may be indicated in this case.4. Possible familial implications of test results. If positive, there are risks to relatives to carry some mutations as the patient. If negative, although she cannot pass on a mutation to her children if she does not carry one, other family members still may qualify for testing and may be at risk for an inherited cancer syndrome.5. Discussion regarding state and federal laws regarding genetic discrimination and the privacy of genetic information. These laws do not apply to other forms of insurance, which may include life or disability insurance.Z80.0 Family history of malignant neoplasm of digestive organsComments:Patient meets 2015 NCCN criteria for heritable cancer syndromes. Specifically patient has [include alist of criteria to choose.] We are basing this assessment on the family history patient is reporting to us. Affected relative(s) has not been tested in this patient's family because: they are or they refused testing are unable to be reached have been tested and results are attached. We discussed and offered generic testing and patient accepted. The hereditary cancer panel will screen for 25 genes, all of which impact the risk for one or more than eight different answers; breast, colon, prostate, skin, ovary, endometrial, stomach, and pancreas. As outlined by ACOG the following discussionpoints were reviewed with the patient during the course of todays appointment and the patient statedan understanding of the followin. Possible outcomes of the testing - specifically addressing the issue of positive, negative, and variance of unknown significance. In the case of an unknown significant variance, cancer risks are not yet fully defined.2. In the absence of a known familial mutation, when an unaffected patient is tested, interpretation of the results may be limited. A negative or unknown result does not eliminate the patients familial risk for cancer. Management based on familial risk would be discussed during result consult.3. Patient will consider surveillance, risk-reducing medications and risk-reducing surgery if a clinically actionable mutation is detected; referral to outside specialist may be indicated in this case.4. Possible familial implications of test results. If positive, there are risks to relatives to carry some mutations as the patient. If negative, although she cannot pass on a mutation to her children if she does not carry one, other family members still may qualify for testing and may be at risk for an inherited cancer syndrome.5. Discussion regarding state and federal laws regarding genetic discrimination and the privacy of genetic information. These laws do not apply to other forms of insurance, which may include life or disability insurance.AllNew Medication:Solosec 2 gm - take entire contents of packet onto applesauce, yogurt or pudding, stir and mix consume within 30 minutes do not chew granul
[2019-04-10] MEDS ORDERED: Potassium Chlor TAB* 20 MEQ TAB.ER PO ONE (12:41)
[2019-04-10 12:46] VITALS: BP 119/80
[2019-04-10 13:14] LABS: Erythrocyte Sed Rate 63 mm/Hr (0-19)
== END 2019-04-10 12:45 | disposition home or self-care (01) ==
LOC: ED 10:23
DX: A69.20 Lyme disease, unspecified (principal); Z79.899 Other long term (current) drug therapy
CPT/HCPCS: 36415; 71045; 80053; 83605; 85025; 85384; 85652; 86618; 87040; 96360; 96361; 99283; A9270-GY